=== PATIENT | male | born 1985 | race African-American/Black ===

== ENCOUNTER 2021-12-22 15:13 | Inpatient (IN) | payer SELFPAY ==
[~2021-12-22 15:13] MED LIST: ISOVUE-370 76%-LOCM 1 ML ONE
[2021-12-22 16:17] LABS: Hemoglobin 15.8 g/dL (14.0-18.0); Mean Corpuscular HGB CONC 34.7 g/dL (32.0-36.0); Mean Corpuscular Hemoglobin 29.6 pg (27.0-31.0); Mean Corpuscular Volume 85.5 fL (78.0-98.0); Mean Platelet Volume 6.8 fL (7.4-10.4); Platelet Count 343 thou/uL (130-400); RBC Distribution Width 12.7 % (11.5-14.5); Red Blood Cell (RBC) Count 5.33 mill/uL (4.70-6.10); White Blood Cell (WBC) Count 37.5 thou/uL (4.8-10.8)
[2021-12-22 16:36] LABS: ALT (SGPT) 20 U/L (8-55); AST (SGOT) 17 U/L (5-34); Alkaline Phosphatase 64 U/L (40-110); Anion Gap 16 mmol/L (10-20); BUN (Urea Nitrogen) 11 mg/dL (8.9-20.6); Bilirubin, Total 2.1 mg/dL (0.2-1.2); Calc. Creatinine Clearance 0 mL/min (70-130); Calcium 9.4 mg/dL (7.8-10.44); Carbon Dioxide 25 mmol/L (22-29); Chloride 98 mmol/L (98-107); Estimated GFR 69; Globulin 4.1 g/dL (2.4-3.5); Glucose 110 mg/dL (70-105); Potassium 3.9 mmol/L (3.5-5.1); Protein, Total 8.1 g/dL (6.0-8.3); Sodium 135 mmol/L (136-145)
[2021-12-22] MEDS ORDERED: Vancomycin 1 GM/200 ML BAG ONE (16:36)
[2021-12-22] MEDS ORDERED: Piperacillin/Tazobactam 3.375 GM VIAL ONE (16:36)
[2021-12-22] MEDS ORDERED: Morphine 4 MG/ML VIAL ONE (16:36)
[2021-12-22 16:48] LABS: Band 17 % (5-11); MDiff Complete? YES; Metamyelocyte 6 % (0-0); Monocytes 5 % (0-10); Neutrophil 72 % (42-75); Platelet Morphology Comment Appears Adequate; RBC Morphology Normal
[2021-12-22] MEDS ORDERED: fentaNYL Citrate/PF 100 MCG/2 ML SYRINGE ONE (18:13)
[2021-12-22 18:26] LABS: Bilirubin Negative (Negative); Blood, Urine Negative (Negative); Clarity Clear (Clear); Glucose, Urine (Dipstick) Normal (Negative); Ketone, Urine Negative (Negative); Leukocyte Negative Leu/uL (Negative); Nitrite Negative (Negative); Protein, Urine (Dipstick) 10 mg/dL (Neg-Trace); Specific Gravity, Urine 1.019 (1.002-1.036); Urobilinogen Normal mg/dL (Less than 2)
[2021-12-22] MEDS ORDERED: Clindamycin/D5W 900 mg/50 ml Premix Bag ONE (18:56)
[2021-12-22] MEDS ORDERED: Succinylcholine 200 MG/10 ml SYRINGE FS ONE (19:35)
[2021-12-22] MEDS ORDERED: PROPOFOL 200 MG/20 ML VIAL ONE (19:35)
[2021-12-22] MEDS ORDERED: Rocuronium Bromide 10 MG/ML (10ML VIAL) ONE (19:35)
[2021-12-22] MEDS ORDERED: Ondansetron PF 4 MG/2 ML Vial ONE ×2 (19:35→22:06)
[2021-12-22 20:11] LABS: SARS-CoV-2 NAA Rapid Test Not Detected (NotDetected)
[2021-12-22] MEDS ORDERED: Ondansetron ODT 4 MG TAB PO PRN (21:49)
[2021-12-22] MEDS ORDERED: Promethazine HCl 25 MG/ML VIAL IVPB PRN (21:56)
[2021-12-22] MEDS ORDERED: Promethazine HCl 25 MG/ML VIAL IM PRN (21:56)
[2021-12-22] MEDS ORDERED: Ondansetron HCl/PF 4 MG/2 ML Vial IVP PRN (21:56)
[2021-12-22 23:03] LABS: Amphetamine Detected (NotDetected); Barbiturates Screen Not Detected (NotDetected); Benzodiazepine Screen Not Detected (NotDetected); Cocaine Metabolite Screen Not Detected (NotDetected); Methadone Not Detected (NotDetected); Methamphetamine Detected (NotDetected); Opiate Screen Detected (NotDetected); Oxycodone Screen Not Detected (NotDetected); Phencyclidine (PCP) Not Detected (NotDetected); THC/Cannabinoid Screen Detected (NotDetected); Tricyclic Screen Not Detected (NotDetected)
[2021-12-22 23:24] VITALS: BMI 28.7
[2021-12-22] MEDS: Lactated Ringer's 1,000 ML IV SCH (23:46)
[2021-12-22] MEDS: Piperacillin/Tazobactam 3.375 GM in Sodium Chloride 0.9% 100 ML IVPB SCH (23:47)
[2021-12-23] MEDS ORDERED: Morphine 2 MG/ML VIAL SLOW IVP PRN (00:07)
[2021-12-23 00:10] LABS: Hemoglobin A1c 4.7 % (4.0-6.0)
[2021-12-23 00:12] LABS: Lactic Acid 2.6 mmol/L (0.5-2.2)
[2021-12-23] MEDS: Vancomycin 1.5 GRAM/300 ML BAG 1.5 GM in Premix Bag 1 BAG IVPB SCH ×2 (00:28→12:06)
[2021-12-23 02:43] LABS: HIV (1/2) Antibody/Antigen Non-Reactive (NonReactive); HIV 1/2 INDEX 0.11 S/CO (<1.00)
[2021-12-23] MEDS: Lactated Ringer's 1,000 ML IV SCH ×3 (06:08→20:37)
[2021-12-23 06:20] LABS: Band 39 % (5-11); Hemoglobin 13.8 g/dL (14.0-18.0); Hypochromia SLIGHT = 6-15 cells (100X) (0-5/hpf); Lymphocytes 4 % (21-51); MDiff Complete? YES; Mean Corpuscular HGB CONC 34.7 g/dL (32.0-36.0); Mean Corpuscular Hemoglobin 29.9 pg (27.0-31.0); Mean Platelet Volume 7.2 fL (7.4-10.4); Metamyelocyte 1 % (0-0); Monocytes 3 % (0-10); Neutrophil 53 % (42-75); Platelet Count 301 thou/uL (130-400); Platelet Morphology Comment Appears Adequate; RBC Distribution Width 12.7 % (11.5-14.5); Red Blood Cell (RBC) Count 4.61 mill/uL (4.70-6.10); White Blood Cell (WBC) Count 32.7 thou/uL (4.8-10.8)
[2021-12-23 06:40] LABS: ALT (SGPT) 15 U/L (8-55); AST (SGOT) 15 U/L (5-34); Albumin 3.2 g/dL (3.5-5.0); Alkaline Phosphatase 80 U/L (40-110); Anion Gap 16 mmol/L (10-20); BUN (Urea Nitrogen) 10 mg/dL (8.9-20.6); Bilirubin, Total 1.3 mg/dL (0.2-1.2); Calc. Creatinine Clearance 130 mL/min (70-130); Calcium 8.4 mg/dL (7.8-10.44); Carbon Dioxide 24 mmol/L (22-29); Chloride 105 mmol/L (98-107); Estimated GFR 84; Globulin 3.5 g/dL (2.4-3.5); Glucose 72 mg/dL (70-105); Potassium 3.8 mmol/L (3.5-5.1); Protein, Total 6.7 g/dL (6.0-8.3); Sodium 141 mmol/L (136-145)
[2021-12-23] MEDS: Piperacillin/Tazobactam 3.375 GM in Sodium Chloride 0.9% 100 ML IVPB SCH ×2 (08:43→16:16)
[2021-12-23] MEDS: Polyethylene Glycol 3350 17 GM Packet PO SCH (08:43)
[2021-12-23] MEDS: Nicotine 21 MG PATCH TD SCH (08:43)
[2021-12-23] MEDS ORDERED: Potassium Chloride 20 MEQ TAB PO SCH (09:00)
[2021-12-23] MEDS ORDERED: Vancomycin 1 GM in Premix Bag 1 BAG IVPB SCH (09:00)
[2021-12-23] MEDS: Morphine 4 MG/ML VIAL SLOW IVP PRN (12:39)
[2021-12-23] MEDS: cefTRIAXone\\ROCEPHIN 2 GM in Sodium Chloride 0.9% 100 ML IVPB SCH (20:37)
[2021-12-23] MEDS: metroNIDAZOLE 500 MG TAB PO SCH (20:37)
[2021-12-24] MEDS: Vancomycin 1.5 GRAM/300 ML BAG 1.5 GM in Premix Bag 1 BAG IVPB SCH (00:52)
[2021-12-24] MEDS: Lactated Ringer's 1,000 ML IV SCH ×4 (02:30→21:37)
[2021-12-24 06:25] LABS: Band 28 % (5-11); Hemoglobin 12.7 g/dL (14.0-18.0); Lymphocytes 8 % (21-51); MDiff Complete? YES; Mean Corpuscular Hemoglobin 29.9 pg (27.0-31.0); Mean Corpuscular Volume 85.3 fL (78.0-98.0); Mean Platelet Volume 6.8 fL (7.4-10.4); Metamyelocyte 1 % (0-0); Monocytes 2 % (0-10); Neutrophil 61 % (42-75); Platelet Count 297 thou/uL (130-400); Platelet Morphology Comment Appears Adequate; RBC Distribution Width 12.7 % (11.5-14.5); RBC Morphology Normal; Red Blood Cell (RBC) Count 4.25 mill/uL (4.70-6.10)
[2021-12-24 06:28] LABS: ALT (SGPT) 12 U/L (8-55); AST (SGOT) 14 U/L (5-34); Albumin 3.1 g/dL (3.5-5.0); Alkaline Phosphatase 58 U/L (40-110); Anion Gap 11 mmol/L (10-20); BUN (Urea Nitrogen) 8 mg/dL (8.9-20.6); Bilirubin, Total 0.9 mg/dL (0.2-1.2); Calc. Creatinine Clearance 177 mL/min (70-130); Calcium 8.5 mg/dL (7.8-10.44); Carbon Dioxide 27 mmol/L (22-29); Chloride 103 mmol/L (98-107); Estimated GFR 115; Globulin 3.4 g/dL (2.4-3.5); Glucose 97 mg/dL (70-105); Potassium 3.3 mmol/L (3.5-5.1); Protein, Total 6.5 g/dL (6.0-8.3); Sodium 138 mmol/L (136-145)
[2021-12-24] MEDS ORDERED: Potassium Chloride 20 MEQ TAB PO SCH (07:30)
[2021-12-24] MEDS: metroNIDAZOLE 500 MG TAB PO SCH ×3 (08:06→21:36)
[2021-12-24] MEDS: Nicotine 21 MG PATCH TD SCH (08:07)
[2021-12-24] MEDS: Polyethylene Glycol 3350 17 GM Packet PO SCH (08:09)
[2021-12-24 11:40] LABS: Vancomycin, Trough 7.3 ug/mL
[2021-12-24] MEDS: Morphine 4 MG/ML VIAL SLOW IVP PRN ×2 (11:54→18:28)
[2021-12-24] MEDS ORDERED: Simethicone Chewable 80 MG TAB PO PRN (17:09)
[2021-12-24] MEDS: cefTRIAXone\\ROCEPHIN 2 GM in Sodium Chloride 0.9% 100 ML IVPB SCH (21:36)
[2021-12-25] MEDS ORDERED: Potassium Chloride 20 MEQ TAB PO SCH (06:00)
[2021-12-25] MEDS: Lactated Ringer's 1,000 ML IV SCH ×3 (06:00→18:44)
[2021-12-25 06:15] LABS: Band 19 % (5-11); Eosinophils 1 % (0-10); Hemoglobin 12.6 g/dL (14.0-18.0); Hypochromia SLIGHT = 6-15 cells (100X) (0-5/hpf); Lymphocytes 11 % (21-51); MDiff Complete? YES; Mean Corpuscular HGB CONC 35.1 g/dL (32.0-36.0); Mean Corpuscular Volume 85.4 fL (78.0-98.0); Mean Platelet Volume 6.8 fL (7.4-10.4); Monocytes 9 % (0-10); Neutrophil 60 % (42-75); Platelet Count 334 thou/uL (130-400); Platelet Morphology Comment Appears Adequate; RBC Distribution Width 12.7 % (11.5-14.5); White Blood Cell (WBC) Count 22.2 thou/uL (4.8-10.8)
[2021-12-25 06:20] LABS: ALT (SGPT) 15 U/L (8-55); AST (SGOT) 14 U/L (5-34); Alkaline Phosphatase 68 U/L (40-110); Anion Gap 11 mmol/L (10-20); BUN (Urea Nitrogen) 8 mg/dL (8.9-20.6); Bilirubin, Total 0.5 mg/dL (0.2-1.2); Calc. Creatinine Clearance 186 mL/min (70-130); Calcium 8.7 mg/dL (7.8-10.44); Carbon Dioxide 26 mmol/L (22-29); Chloride 106 mmol/L (98-107); Estimated GFR 117; Globulin 3.4 g/dL (2.4-3.5); Glucose 95 mg/dL (70-105); Potassium 3.5 mmol/L (3.5-5.1); Protein, Total 6.4 g/dL (6.0-8.3); Sodium 139 mmol/L (136-145)
[2021-12-25] MEDS ORDERED: Bupivacaine 0.25% HCL 30 ML VIAL ONE (07:17)
[2021-12-25] MEDS ORDERED: fentaNYL Citrate/PF 100 MCG/2 ML SYRINGE ONE ×2 (07:49→08:39)
[2021-12-25] MEDS ORDERED: Lidocaine 1% PF 5 ML VIAL ONE (08:19)
[2021-12-25] MEDS ORDERED: Ondansetron PF 4 MG/2 ML Vial ONE (08:19)
[2021-12-25] MEDS ORDERED: PROPOFOL 200 MG/20 ML VIAL ONE (08:19)
[2021-12-25] MEDS ORDERED: Fentanyl 100 MCG/2 ML VIAL ONE (09:31)
[2021-12-25] MEDS ORDERED: Labetalol HCl 100 MG/20 ML VIAL ONE (09:31)
[2021-12-25] MEDS ORDERED: hydrALAZINE 20 MG/ML VIAL ONE ×2 (10:06→10:35)
[2021-12-25] MEDS ORDERED: Morphine 2 MG/ML VIAL ONE (10:07)
[2021-12-25] MEDS: metroNIDAZOLE 500 MG TAB PO SCH ×3 (11:13→21:04)
[2021-12-25] MEDS: Polyethylene Glycol 3350 17 GM Packet PO SCH (11:13)
[2021-12-25] MEDS: Nicotine 21 MG PATCH TD SCH (11:13)
[2021-12-25] MEDS: Morphine 4 MG/ML VIAL SLOW IVP PRN ×3 (11:18→21:07)
[2021-12-25] MEDS: cefTRIAXone\\ROCEPHIN 2 GM in Sodium Chloride 0.9% 100 ML IVPB SCH (21:05)
[2021-12-26 00:20] LABS: Vancomycin, Trough 10.6 ug/mL
[2021-12-26] MEDS: VANCOMYCIN 1.75 GM/500 ML BAG 1.75 GM in Premix Bag 1 BAG IVPB SCH ×3 (02:28→18:34)
[2021-12-26] MEDS: Lactated Ringer's 1,000 ML IV SCH ×2 (04:33→08:52)
[2021-12-26 06:14] LABS: ALT (SGPT) 13 U/L (8-55); AST (SGOT) 13 U/L (5-34); Albumin 2.9 g/dL (3.5-5.0); Alkaline Phosphatase 56 U/L (40-110); Anion Gap 10 mmol/L (10-20); BUN (Urea Nitrogen) 4 mg/dL (8.9-20.6); Bilirubin, Total 0.9 mg/dL (0.2-1.2); Calc. Creatinine Clearance 200 mL/min (70-130); Calcium 8.7 mg/dL (7.8-10.44); Carbon Dioxide 26 mmol/L (22-29); Chloride 104 mmol/L (98-107); Estimated GFR 120; Globulin 3.5 g/dL (2.4-3.5); Glucose 93 mg/dL (70-105); Potassium 3.4 mmol/L (3.5-5.1); Protein, Total 6.4 g/dL (6.0-8.3); Sodium 137 mmol/L (136-145)
[2021-12-26 06:32] LABS: Band 6 % (5-11); Eosinophils 2 % (0-10); Hemoglobin 12.4 g/dL (14.0-18.0); Lymphocytes 18 % (21-51); MDiff Complete? YES; Mean Corpuscular HGB CONC 34.2 g/dL (32.0-36.0); Mean Corpuscular Hemoglobin 29.1 pg (27.0-31.0); Mean Corpuscular Volume 85.1 fL (78.0-98.0); Mean Platelet Volume 6.6 fL (7.4-10.4); Metamyelocyte 1 % (0-0); Monocytes 10 % (0-10); Neutrophil 63 % (42-75); Platelet Count 360 thou/uL (130-400); Platelet Morphology Comment Appears Adequate; RBC Distribution Width 12.8 % (11.5-14.5); RBC Morphology Normal; Red Blood Cell (RBC) Count 4.26 mill/uL (4.70-6.10); White Blood Cell (WBC) Count 23.7 thou/uL (4.8-10.8)
[2021-12-26] MEDS ORDERED: Potassium Chloride 20 MEQ TAB PO SCH (08:45)
[2021-12-26] MEDS: Nicotine 21 MG PATCH TD SCH (08:53)
[2021-12-26] MEDS: metroNIDAZOLE 500 MG TAB PO SCH ×3 (08:53→22:00)
[2021-12-26] MEDS: Polyethylene Glycol 3350 17 GM Packet PO SCH (08:55)
[2021-12-26] MEDS ORDERED: Amlodipine 5 MG TAB PO SCH (12:15)
[2021-12-26] MEDS: Morphine 4 MG/ML VIAL SLOW IVP PRN ×2 (13:22→21:09)
[2021-12-26] MEDS: cefTRIAXone\\ROCEPHIN 2 GM in Sodium Chloride 0.9% 100 ML IVPB SCH (21:12)
[2021-12-27 01:50] LABS: Vancomycin, Trough 19.2 ug/mL
[2021-12-27] MEDS: VANCOMYCIN 1.75 GM/500 ML BAG 1.75 GM in Premix Bag 1 BAG IVPB SCH ×2 (02:53→09:34)
[2021-12-27] MEDS: Morphine 4 MG/ML VIAL SLOW IVP PRN ×3 (05:13→23:24)
[2021-12-27 05:55] LABS: ALT (SGPT) 15 U/L (8-55); AST (SGOT) 15 U/L (5-34); Alkaline Phosphatase 50 U/L (40-110); Anion Gap 13 mmol/L (10-20); BUN (Urea Nitrogen) 6 mg/dL (8.9-20.6); Bilirubin, Total 0.4 mg/dL (0.2-1.2); Calc. Creatinine Clearance 195 mL/min (70-130); Carbon Dioxide 26 mmol/L (22-29); Chloride 105 mmol/L (98-107); Estimated GFR 119; Globulin 3.6 g/dL (2.4-3.5); Glucose 93 mg/dL (70-105); Potassium 3.6 mmol/L (3.5-5.1); Protein, Total 6.6 g/dL (6.0-8.3); Sodium 140 mmol/L (136-145)
[2021-12-27 06:05] LABS: Band 4 % (5-11); Hemoglobin 12.5 g/dL (14.0-18.0); Lymphocytes 25 % (21-51); MDiff Complete? YES; Mean Corpuscular HGB CONC 34.8 g/dL (32.0-36.0); Mean Corpuscular Hemoglobin 29.7 pg (27.0-31.0); Mean Corpuscular Volume 85.4 fL (78.0-98.0); Mean Platelet Volume 6.5 fL (7.4-10.4); Monocytes 5 % (0-10); Neutrophil 62 % (42-75); Platelet Count 454 thou/uL (130-400); Platelet Morphology Comment Appears Increased; RBC Morphology Normal; Reactive Lymphocytes 4 % (0-10); White Blood Cell (WBC) Count 21.9 thou/uL (4.8-10.8)
[2021-12-27] MEDS: Amlodipine 5 MG TAB PO SCH (09:33)
[2021-12-27] MEDS: metroNIDAZOLE 500 MG TAB PO SCH ×3 (09:34→20:26)
[2021-12-27] MEDS: Nicotine 21 MG PATCH TD SCH (09:34)
[2021-12-27] MEDS: Polyethylene Glycol 3350 17 GM Packet PO SCH (09:36)
[2021-12-27] MEDS: Ciprofloxacin 500 MG TAB PO SCH (20:26)
[2021-12-28 01:44] LABS: Hemoglobin 12.7 g/dL (14.0-18.0); Mean Corpuscular HGB CONC 34.4 g/dL (32.0-36.0); Mean Corpuscular Hemoglobin 29.2 pg (27.0-31.0); Mean Corpuscular Volume 84.9 fL (78.0-98.0); Mean Platelet Volume 6.3 fL (7.4-10.4); Platelet Count 542 thou/uL (130-400); Red Blood Cell (RBC) Count 4.36 mill/uL (4.70-6.10); White Blood Cell (WBC) Count 20.3 thou/uL (4.8-10.8)
[2021-12-28 01:53] LABS: Vancomycin, Trough 8.4 ug/mL
[2021-12-28 02:05] LABS: ALT (SGPT) 15 U/L (8-55); AST (SGOT) 16 U/L (5-34); Albumin 3.1 g/dL (3.5-5.0); Alkaline Phosphatase 52 U/L (40-110); Anion Gap 11 mmol/L (10-20); BUN (Urea Nitrogen) 7 mg/dL (8.9-20.6); Bilirubin, Total 0.3 mg/dL (0.2-1.2); Calc. Creatinine Clearance 190 mL/min (70-130); Carbon Dioxide 25 mmol/L (22-29); Chloride 103 mmol/L (98-107); Estimated GFR 118; Glucose 110 mg/dL (70-105); Potassium 3.4 mmol/L (3.5-5.1); Protein, Total 7.1 g/dL (6.0-8.3); Sodium 136 mmol/L (136-145)
[2021-12-28 02:40] LABS: Band 11 % (5-11); Eosinophils 2 % (0-10); Lymphocytes 19 % (21-51); MDiff Complete? YES; Monocytes 7 % (0-10); Myelocyte 2 % (0-0); Neutrophil 59 % (42-75); Platelet Morphology Comment Appears Increased; RBC Morphology Normal
[2021-12-28] MEDS: Ciprofloxacin 500 MG TAB PO SCH ×2 (05:15→20:09)
[2021-12-28] MEDS: Morphine 4 MG/ML VIAL SLOW IVP PRN ×3 (05:58→18:50)
[2021-12-28] MEDS: Amlodipine 5 MG TAB PO SCH (08:36)
[2021-12-28] MEDS: metroNIDAZOLE 500 MG TAB PO SCH ×3 (08:36→20:09)
[2021-12-28] MEDS: Nicotine 21 MG PATCH TD SCH (08:36)
[2021-12-28] MEDS: Polyethylene Glycol 3350 17 GM Packet PO SCH (08:37)
[2021-12-28] MEDS ORDERED: Amlodipine 5 MG TAB PO SCH (10:15)
[2021-12-29] MEDS: Morphine 4 MG/ML VIAL SLOW IVP PRN ×2 (00:23→05:25)
[2021-12-29] MEDS: Ciprofloxacin 500 MG TAB PO SCH ×2 (05:25→21:26)
[2021-12-29 06:23] LABS: #Basophils 0.1 thou/uL (0.0-0.2); #Eosinphils 0.4 thou/uL (0.0-0.7); #Lymphocytes 3.9 thou/uL (1.20-3.40); #Monocytes 1.6 thou/uL (0.11-0.59); #Neutrophils 14.1 thou/uL (1.40-6.50); %Basophils 0.3 % (0.0-1.0); %Eosinophils 2.2 % (0.0-10.0); %Lymphocytes 19.2 % (21.0-51.0); %Monocytes 8.1 % (0.0-10.0); %Neutrophils 70.2 % (42.0-75.0); Hemoglobin 12.7 g/dL (14.0-18.0); Mean Corpuscular HGB CONC 33.5 g/dL (32.0-36.0); Mean Corpuscular Hemoglobin 28.4 pg (27.0-31.0); Mean Corpuscular Volume 84.7 fL (78.0-98.0); Mean Platelet Volume 6.2 fL (7.4-10.4); Platelet Count 667 thou/uL (130-400); RBC Distribution Width 13.2 % (11.5-14.5); Red Blood Cell (RBC) Count 4.46 mill/uL (4.70-6.10)
[2021-12-29 06:45] LABS: ALT (SGPT) 17 U/L (8-55); AST (SGOT) 17 U/L (5-34); Albumin 3.2 g/dL (3.5-5.0); Alkaline Phosphatase 55 U/L (40-110); Anion Gap 16 mmol/L (10-20); BUN (Urea Nitrogen) 6 mg/dL (8.9-20.6); Bilirubin, Total 0.4 mg/dL (0.2-1.2); Calc. Creatinine Clearance 169 mL/min (70-130); Calcium 8.9 mg/dL (7.8-10.44); Carbon Dioxide 25 mmol/L (22-29); Chloride 102 mmol/L (98-107); Estimated GFR 114; Globulin 4.2 g/dL (2.4-3.5); Glucose 123 mg/dL (70-105); Potassium 3.7 mmol/L (3.5-5.1); Protein, Total 7.4 g/dL (6.0-8.3); Sodium 139 mmol/L (136-145)
[2021-12-29] MEDS ORDERED: Amlodipine 10 MG TAB PO SCH (09:00)
[2021-12-29] MEDS: Polyethylene Glycol 3350 17 GM Packet PO SCH (09:25)
[2021-12-29] MEDS: Nicotine 21 MG PATCH TD SCH (09:25)
[2021-12-29] MEDS: metroNIDAZOLE 500 MG TAB PO SCH ×3 (09:25→21:26)
[2021-12-29] MEDS ORDERED: Hydrochlorothiazide 25 MG TAB PO SCH (10:30)
[2021-12-29] MEDS ORDERED: Ibuprofen 600 MG TAB PO PRN (17:15)
[2021-12-29] MEDS ORDERED: Morphine 4 MG/ML VIAL SLOW IVP SCH (18:00)
[2021-12-30 01:17] VITALS: BP 138/79; TEMP 98.4
[2021-12-30] MEDS ORDERED: Hydrochlorothiazide 25 MG TAB PO SCH (09:00)
== END 2021-12-29 21:35 | disposition home or self-care (01) | DRG 854 ==
LOC: ERS 15:13 → SDC/OP 19:50 → SURG A 22:48
PROVIDERS: ADMIT Urology; ATTEND Urology
PROC: 0VB50ZZ Excision of Scrotum, Open Approach (ICD-10-PCS; principal; 2021-12-22)
PROC: 0KBP0ZZ Excision of Left Hip Muscle, Open Approach (ICD-10-PCS; 2021-12-22)
PROC: 0KBM0ZZ Excision of Perineum Muscle, Open Approach (ICD-10-PCS; 2021-12-22)
PROC: 3E03329 Introduction of Other Anti-infective into Peripheral Vein, Percutaneous Approach (ICD-10-PCS; 2021-12-22)
PROC: 0HXAXZZ Transfer Inguinal Skin, External Approach (ICD-10-PCS; 2021-12-25)
PROC: 0VB50ZZ Excision of Scrotum, Open Approach (ICD-10-PCS; 2021-12-25)
DX: A41.4 Sepsis due to anaerobes (principal); N17.9 Acute kidney failure, unspecified; N49.3 Fournier gangrene; Z20.822 Contact with and (suspected) exposure to COVID-19; I10 Essential (primary) hypertension; F17.210 Nicotine dependence, cigarettes, uncomplicated; F12.10 Cannabis abuse, uncomplicated; E87.6 Hypokalemia; Z83.3 Family history of diabetes mellitus; Z82.49 Family history of ischemic heart disease and other diseases of the circulatory system; Z98.890 Other specified postprocedural states; Z91.19 Patient's noncompliance with other medical treatment and regimen
CPT/HCPCS: 36415; 72193; 76870; 80053; 80202; 80306; 81003; 83036; 83605; 85025; 87040; 87070; 87076; 87205; 87389; 93976; 96365; 96367; 96375; 97139; J0360; J0696; J2270; J2405; J2543; J2704; J2710; J3010; J3370; J3490; J7030; J7120; Q9966; S0020; U0002

== ENCOUNTER 2022-07-13 12:13 | Emergency (ER) | payer SELFPAY | END 2022-07-13 16:07 | disposition home or self-care (01) | LOC: ERS 12:13 | DX: M77.11 Lateral epicondylitis, right elbow (principal); M19.021 Primary osteoarthritis, right elbow; I10 Essential (primary) hypertension; F17.210 Nicotine dependence, cigarettes, uncomplicated ==